=== PATIENT | female | born 1955 | race Caucasian/White ===

== ENCOUNTER 2021-02-08 08:48 | Outpatient (CLI) | payer BC, SELFPAY ==
[2021-02-08 09:34] LABS: Basophils Percent Auto 0.3 % (0.2-1.2); Eosinophils Absolute Auto 0.3 K/mm3 (0-0.3); Eosinophils Percent Auto 8.2 % (0-4.4); Hematocrit 31.1 % (37.0-47.0); Immature Platelet Fraction Pct 2.6 % (0.9-11.2); Lymphocytes Percent Auto 36.1 % (18.3-44.2); Mean Corpuscular HGB Conc 32.2 g/dl (32-36); Mean Corpuscular Hemoglobin 28.1 pg (26-34); Mean Corpuscular Volume 87.4 fl (80-100); Mean Platelet Volume 9.4 fl (7.4-10.4); Monocytes Absolute Auto 0.3 K/mm3 (0.1-0.6); Monocytes Percent Auto 10.2 % (2.6-8.5); Neutrophils Absolute Auto 1.4 K/mm3 (1.3-6.7); Neutrophils Percent Auto 45.2 % (45.5-73.1); Platelet Count Result 45 k/mm3 (150-375); Red Blood Count 3.56 M/mm3 (4.2-5.4); Red Cell Distribution Width 16.9 % (11.5-14.5); White Blood Count 3.1 K/mm3 (4.5-10.0)
[2021-02-08 09:43] LABS: Alanine Aminotransferase 41 U/L (4-35); Albumin Level 2.6 g/dL (3.5-5.1); Alkaline Phosphatase 132 U/L (38-126); Anion Gap 0 mmol/L (8-16); Aspartate Amino Transferase 79 U/L (14-36); Bilirubin,Total 1.8 mg/dL (0.2-1.3); Blood Urea Nitrogen 6 mg/dL (7-17); Calcium 8.4 mg/dL (8.4-10.2); Carbon Dioxide 28 mmol/L (22-30); Chloride 110 mmol/L (98-107); Cholesterol 132 mg/dL (0-200); Estimated Glomerular Filt Rate > 60; Glucose 91 mg/dL (65-110); HDL Direct 61 mg/dL; Potassium 3.6 mmol/L (3.4-5.0); Sodium 138 mmol/L (137-145); Triglycerides 84 mg/dL (<150)
[2021-02-08 09:46] LABS: Hemoglobin A1C 4.5 % (<5.7)
[2021-02-08 09:54] LABS: LDL Cholesterol Direct 32 mg/dL
[2021-02-08 10:10] LABS: Platelet Estimate Decreased (Adequate)
[2021-02-08 10:11] LABS: Acanthocytes 1+ (NORMAL); Anisocytosis 1+ (NORMAL); Hypochromasia 1+ (NORMAL); Poikilocytosis 1+ (NORMAL)
[2021-02-08 10:52] LABS: Vitamin B12 > 1000.0 pg/mL (239-931)
[2021-02-08 11:36] LABS: Add Urine Microscopic? NO; Appearance Urine Clear (Clear); Bilirubin Urine Negative (Negative); Blood Urine Negative (Negative); Color Urine Straw (Yellow); Glucose Urine UA Negative (Negative); Ketones Urine Negative (Negative); Leukocyte Esterase Ur Negative LEU/UL (NEGATIVE); Nitrate Urine Negative (Negative); Protein Urine Negative (Negative); Urobilinogen Urine Negative mg/dL (<2.0)
[2021-02-08 11:43] LABS: Specific Grav Ur 1.003 (1.001-1.035)
[2021-02-09 00:31] LABS: Folic Acid 6.6 ng/mL (2.76->20)
== END 2021-02-08 08:49 | disposition home or self-care (01) ==
LOC: ANHLAB 08:53
PROVIDERS: PCP Nurse Practitioner Adult Health; Visit Provider Nurse Practitioner Adult Health
DX: R39.9 Unspecified symptoms and signs involving the genitourinary system (principal); Z13.9 Encounter for screening, unspecified
CPT/HCPCS: 36415; 80053; 80061; 81003; 82607; 82746; 83036; 84443; 85025; 85055

== ENCOUNTER → 2021-02-14 08:03 | Outpatient (CLI) | payer BC, SELFPAY ==
--- NOTE | ~2021-02-14 | CT_ITS ---
EXAMINATION: CT abdomen pelvis wo con DATE: 02/14/2021 08:37 INDICATION: Ventral hernia without obstruction or gangrene TECHNIQUE: Computed tomography (CT) of the abdomen and pelvis was performed without intravenous contr ast. The dose-length product (DLP) was 319.69 mGy-cm. Automated exposure control and iterative recons truction technique were employed. COMPARISON: None FINDINGS: The lung bases are clear. The heart size is normal. The liver surface is nodular, consisten t with cirrhosis. There is a moderate volume of ascites. A small volume of ascites is seen within the left inguinal hernia. The spleen, pancreas, and adrenal glands are normal. Apparent mild wall thicke jamie of the gallbladder is likely related to chronic liver disease. The kidneys are unremarkable. The re is calcified atherosclerosis of the aorta and many of the other arteries. No pathologically enlarg ed abdominal or pelvic lymph nodes are identified. There is no free intraperitoneal gas or evidence o f bowel obstruction. There is a tiny umbilical hernia containing ascites. A small fat-containing supr aumbilical hernia 1 cm above the umbilicus is also seen. There is moderate lumbar spondylosis at L5-S 1. IMPRESSION: 1. Small supraumbilical hernia containing fat and tiny umbilical hernia containing ascites. 2. Left inguinal hernia containing ascites. 3. Cirrhosis with moderate volume of ascites. Reviewed, dictated and finalized at [facility]. IMPRESSION: 1. Small supraumbilical hernia containing fat and tiny umbilical hernia contain ing ascites. 2. Left inguinal hernia containing ascites. 3. Cirrhosis with moderate volume of ascites.
== END ==
PROVIDERS: PCP Nurse Practitioner Adult Health; Visit Provider Nurse Practitioner Adult Health
DX: K42.9 Umbilical hernia without obstruction or gangrene (principal); K40.90 Unilateral inguinal hernia, without obstruction or gangrene, not specified as recurrent; K76.0 Fatty (change of) liver, not elsewhere classified
CPT/HCPCS: 74176

== ENCOUNTER 2021-02-14 08:47 | Outpatient (CLI) | payer BC, SELFPAY ==
[2021-02-14 10:21] LABS: INR 1.5; Prothrombin Time 17.9 Seconds (11.1-14.7)
[2021-02-14 10:22] LABS: Partial Thromboplastin Time 37.5 SECONDS (22.3-36.8)
[2021-02-14 11:06] LABS: Iron 207 ug/dL (37-170)
[2021-02-14 11:15] LABS: Percent Iron Saturation 86 % (20-50)
== END 2021-02-14 08:48 | disposition home or self-care (01) ==
PROVIDERS: PCP Nurse Practitioner Adult Health; Visit Provider Nurse Practitioner Adult Health
DX: D64.9 Anemia, unspecified (principal); D72.819 Decreased white blood cell count, unspecified; D69.6 Thrombocytopenia, unspecified
CPT/HCPCS: 36415; 82728; 83540; 83550; 85610; 85730

== ENCOUNTER 2021-02-15 10:03 | Outpatient (CLI) | payer BC, SELFPAY ==
[2021-02-15 12:11] LABS: IFOB Positive Control Positive; Immunochemical Fecal Occult Bl Positive (N)
== END 2021-02-15 10:04 | disposition home or self-care (01) ==
PROVIDERS: PCP Nurse Practitioner Adult Health; Visit Provider Nurse Practitioner Adult Health
DX: D64.9 Anemia, unspecified (principal)
CPT/HCPCS: 82274

== ENCOUNTER 2021-05-17 22:31 | Emergency (ER) | payer BC, SELFPAY ==
--- NOTE | 2021-05-17 22:34 | PC.NURSE ---
Pt states i see its pretty busy, how long is the wait? This RN told pt i can't give out wait times but that we are full and very busy. pt states well ill just check back maybe tomorrow Pt ambulated to the exit with no difficulty
== END 2021-05-18 04:11 | disposition left against medical advice (07) ==
LOC: ANHED 22:45
PROVIDERS: PCP Nurse Practitioner Adult Health
DX: Z53.21 Procedure and treatment not carried out due to patient leaving prior to being seen by health care provider (principal)
CPT/HCPCS: 99199

== ENCOUNTER 2021-12-30 03:05 | Emergency (ER) | payer BC, SELFPAY ==
[2021-12-30] VITALS (19 sets, daily range): BP systolic 90–152; BP diastolic 55–76; PULSE 70–99; RESP 10–19; TEMP 37.1; O2SAT 96–100
--- NOTE | ~2021-12-30 | US_ITS ---
US paracentesis abd w/image DATE: 12/30/2021 09:57 INDICATION: Ascites TECHNIQUE: The purpose of the procedure, technique and potential complications were discussed with th e patient. The patient verbalized understanding and gave consent. An appropriate site for percutaneous access was identified along the left lower anterolateral abdomin al wall. The skin was prepared with sterile Betadine solution. Sterile drape was applied. 1% lidocain e local anesthetic was administered to the skin and underlying subcutaneous tissues. Using ultrasound guidance, a single stick needle/catheter was introduced into the abdominal peritonea l cavity uneventfully, yielding yellowish ascites at the hilum. The catheter was advanced over the ne edle and the needle was withdrawn. 4.3 L of cloudy yellow ascites was collected in vacuum bottles. The patient tolerated procedure well, without apparent complication. IMPRESSION: Percutaneous ultrasound-guided drainage of 4.3 L yellow ascites Reviewed, dictated and finalized at [facility]. Reviewed, dictated and finalized at [facility].
--- NOTE | ~2021-12-30 | CT_ITS ---
EXAMINATION: CT abdomen pelvis w con DATE: 12/30/2021 04:52 INDICATION: Severe abdominal pain and cramping, nausea, lower abdominal distention TECHNIQUE: Computed tomography (CT) of the abdomen and pelvis was performed with 100 CC Omnipaque 300 intravenous contrast. Automated exposure control and iterative reconstruction technique were employe d. Exam dose: 462.77 mGy-cm total exam DLP. COMPARISON: 02/14/2021 CT abdomen pelvis FINDINGS: The lung bases are clear of infiltrate or consolidation. Normal heart size. No pericardial or pleural effusion. There is prominent ascites, substantially increased in volume compared to 02/14/2021. Small liver with surface nodularity consistent with cirrhosis. Approximately 3.3 cm lateral segment left hepatic mass lesion is suggested. Hepatocellular carcinoma is not excluded. Consider hepatic MRI examination. Spl een measures 13 cm is highly. The gallbladder is unremarkable. No bile duct or pancreatic duct dilatation. No pancreatic mass lesio n or calcification. Normal morphology of the adrenal glands. No renal mass lesion or urinary tract calculus or hydroureteronephrosis. There is atherosclerotic calcification but normal caliber of the abdominal aorta. No intraperitoneal or retroperitoneal or pelvic mass lesion or adenopathy. The uterus, adnexal areas and urinary bladder are unremarkable. Normal appendix. No bowel obstruction or intraperitoneal free air. Fluid containing inguinal hernias, left larger than right. Fat and fluid containing up to 3.8 cm wide umbilical hernia. Severe degenerative disc disease at L5-S1. No suspicious osteolytic or osteoblastic lesions are noted . IMPRESSION: Severe ascites, cirrhosis, splenomegaly Approximately 3.3 cm lateral segment left hepatic mass lesion is suggested.; Hepatocellular carcinoma is not excluded. Consider MRI liver examination Reviewed, dictated and finalized at [facility]. Reviewed, dictated and finalized at location [facility]. IMPRESSION: Severe ascites, cirrhosis, splenomegaly Approximately 3.3 cm lateral segment left hepatic mass lesion is suggested.; He patocellular carcinoma is not excluded. Consider MRI liver examination
--- NOTE | 2021-12-30 03:09 | ECG_ITS ---
Measurements Intervals [place] Rate: 76 P: 58 [place]: 142 QRS: -4 QRSD: 84 T: 36 QT: 373 QTc: 420 Interpretive Statements SINUS RHYTHM POSSIBLE LEFT ATRIAL ENLARGEMENT CANNOT RULE OUT SEPTAL INFARCT, AGE INDETERMINATE ABNORMAL ECG Electronically Signed On 12-30-2021 10:03:13 CDT by Compa Guerrero D.O.
--- NOTE | 2021-12-30 03:33 | ED.GENADULT ---
HPI - General Adult General Chief complaint: Abdominal Pain <Desmond Yang MD - Last Filed: 12/30/21 07:30> Stated complaint: ABD PAIN <Desmond Yang MD - Last Filed: 12/30/21 07:30> Time Seen by Provider: 12/30/21 03:09 <Desmond Yang MD - Last Filed: 12/30/21 07:30> History of Present Illness HPI narrative: Patient is a 66-year-old female that presents the emergency department with chief complaint of abdominal discomfort and abdominal distention. Patient reports she has history of cirrhosis and also liver cancer has been seen by hepatology at [facility] and was recently seen both in the emergency department at [place] and seen in the emergency department at [facility]. The patient states that her abdomen has become progressively more distended and reports that she called her doctor's office and they told her that she should come to the emergency department. Patient denies vomiting denies diarrhea states that her abdomen feels full and feels distended. <Desmond Yang MD - Last Filed: 12/30/21 07:30> Related Data Home medications: Home Medications Medication Instructions Recorded Confirmed cyclobenzaprine 5 mg tablet 5 mg PO PRN PRN Pain 12/30/21 12/30/21 furosemide 20 mg tablet 30 mg PO DAILY 12/30/21 12/30/21 lactulose 10 gram/15 mL oral 30 ml PO DAILY 12/30/21 12/30/21 solution (Constulose) spironolactone 50 mg tablet 30 mg PO DAILY 12/30/21 12/30/21 <Desmond Yang MD - Last Filed: 12/30/21 07:30> Allergies/adverse reactions: Allergies Allergy/AdvReac Type Severity Reaction Status Date / Time No Known Allergies Allergy Verified 12/30/21 03:13 <Desmond Yang MD - Last Filed: 12/30/21 07:30> Review of Systems Review of Systems: A 10 system review of systems was completed on the patient and is negative except for what is stated in the HPI. Nursing and ancillary documentation was reviewed. <Desmond Yang MD - Last Filed: 12/30/21 07:30> [facility] Social History Social History: Social History Smoking status: Never smoker Alcohol intake: never <Desmond Yang MD - Last Filed: 12/30/21 07:30> Comments Past medical history significant for liver Cirrhosis <Desmond Yang MD - Last Filed: 12/30/21 07:30> Exam Narrative: GENERAL: Well-appearing, well-nourished, and in no acute distress. HEAD: Normocephalic, atraumatic. EYES: PERRLA and EOMI. ENT: Nares clear, no rhinorrhea or epistaxis. Mucous membranes moist. NECK: Supple. CHEST: Clear to auscultation. No respiratory distress. HEART: Regular rate and rhythm. No murmur heard. Normal peripheral pulses. ABDOMEN: Soft, distended abdomen, nondistended, normal active bowel sounds. EXTREMITIES: Normal range of motion. No edema. SKIN: Warm, dry, no rash. NEURO: No focal deficits. Alert and oriented x3. PSYCH: Normal mood and affect. <Desmond Yang MD - Last Filed: 12/30/21 07:30> Course Reevaluation(s) Reevaluation #1: Patient had a therapeutic tap performed by interventional radiology. Patient did feel improved after the tap. Patient was encouraged to have close follow-up with her physicians. All questions concerns were addressed. Patient was stable at time of discharge. <Nick Day MD - Last Filed: 12/30/21 15:55> Vital Signs Vital signs: Vital Signs Temperature 98.7 F 12/30/21 03:02 Pulse Rate 90 12/30/21 03:02 Respiratory Rate 16 12/30/21 03:02 Blood Pressure 124/64 12/30/21 03:02 Pulse Oximetry 98 12/30/21 03:02 Oxygen Delivery Room Air 12/30/21 03:02 Temperature 98.7 F 12/30/21 03:02 Pulse Rate 99 12/30/21 11:47 Respiratory Rate 16 12/30/21 11:47 Blood Pressure 152/76 H 12/30/21 11:47 Pulse Oximetry 97 12/30/21 11:47 Oxygen Delivery Room Air 12/30/21 03:02 <Desmond Yang MD - Last Filed: 12/30/21 07:3
[2021-12-30 03:56] LABS: Basophils Percent Auto 0.4 % (0.2-1.2); Eosinophils Absolute Auto 0.1 K/mm3 (0-0.3); Eosinophils Percent Auto 2.2 % (0-4.4); Hematocrit 27.4 % (37.0-47.0); Immature Granulocyte Absolute 0.01 K/mm3 (0.00-0.031); Immature Granulocyte Percent A 0.2 % (0-0.5); Immature Platelet Fraction Pct 1.7 % (0.9-11.2); Lymphocytes Absolute Auto 0.93 K/mm3 (0.9-3.2); Mean Corpuscular HGB Conc 32.8 g/dl (32-36); Mean Corpuscular Hemoglobin 28.8 pg (26-34); Mean Corpuscular Volume 87.8 fl (80-100); Mean Platelet Volume 10.6 fl (7.4-10.4); Monocytes Absolute Auto 0.7 K/mm3 (0.1-0.6); Monocytes Percent Auto 14.3 % (2.6-8.5); Neutrophils Absolute Auto 3.1 K/mm3 (1.3-6.7); Neutrophils Percent Auto 63.9 % (45.5-73.1); Platelet Count Result 62 k/mm3 (150-375); Red Blood Count 3.12 M/mm3 (4.2-5.4); Red Cell Distribution Width 15.9 % (11.5-14.5); White Blood Count 4.9 K/mm3 (4.5-10.0)
[2021-12-30 04:04] LABS: Ammonia 18 umol/L (9-30)
[2021-12-30 04:05] LABS: Alanine Aminotransferase 28 U/L (6-35); Albumin Level 2.3 g/dL (3.5-5.1); Alkaline Phosphatase 105 U/L (38-126); Anion Gap 1 mmol/L (8-16); Aspartate Amino Transferase 56 U/L (14-36); Bilirubin,Total 2.1 mg/dL (0.2-1.3); Blood Urea Nitrogen 5 mg/dL (7-17); Calcium 7.4 mg/dL (8.4-10.2); Carbon Dioxide 26 mmol/L (22-30); Chloride 103 mmol/L (98-107); Estimated CRCL calculation 68 ml/min; Estimated Glomerular Filt Rate > 60; Glucose 142 mg/dL (65-110); Lipase 160 U/L (23-300); Sodium 130 mmol/L (137-145)
[2021-12-30 04:06] LABS: INR 1.8; Prothrombin Time 19.8 Seconds (11.1-14.7)
[2021-12-30 04:07] LABS: Partial Thromboplastin Time 37.4 SECONDS (22.3-36.8)
[2021-12-30 04:13] LABS: Lactic Acid Reflex 2.2 mmol/L (0.7-2.0)
[2021-12-30 04:16] LABS: Troponin I < 0.012 ng/mL (0.000-0.034)
[2021-12-30 04:26] LABS: Appearance Urine Clear (Clear); Bilirubin Urine Negative (Negative); Color Urine Yellow (Yellow); Glucose Urine UA Negative (Negative); Ketones Urine Negative (Negative); Leukocyte Esterase Ur Negative LEU/UL (Negative); Nitrate Urine Negative (Negative); Protein Urine Negative (Negative); Specific Grav Ur 1.015 (1.001-1.035); Urobilinogen Urine 0.2 mg/dL (<2.0); pH Urine 6.5 (5.0-9.0)
[2021-12-30 04:27] LABS: Add Urine Microscopic? YES; Blood Urine Trace-Intact (Negative)
[2021-12-30 04:28] LABS: Mucus Urine Rare /lpf; Squamous Epithelial Cell Urine Moderate /hpf (Few); WBC Urine 0-3 /hpf
[2021-12-30 06:52] LABS: Reflex Lactic Acid Yes or No Add Lactic
--- NOTE | 2021-12-30 07:10 | PC.NURSE ---
NAIMAR to MAGDALENA WHITE
[2021-12-30 07:30] LABS: Lactic Acid 1.3 mmol/L (0.7-2.0)
--- NOTE | 2021-12-30 09:29 | PC.NURSE ---
Patient to [facility].
== END 2021-12-30 11:47 | disposition home or self-care (01) ==
PROVIDERS: Emergency Provider Emergency Medicine; PCP Nurse Practitioner Adult Health
DX: R10.84 Generalized abdominal pain (principal); C22.8 Malignant neoplasm of liver, primary, unspecified as to type; K74.60 Unspecified cirrhosis of liver; R94.31 Abnormal electrocardiogram [ECG] [EKG]; R18.8 Other ascites; R16.1 Splenomegaly, not elsewhere classified
CPT/HCPCS: 36415; 49083; 74177; 80053; 81001; 82140; 83605; 83690; 84484; 85025; 85055; 85610; 85730; 93005; 99284; Q9967